=== PATIENT | female | born 1950 | race Caucasian/White ===

== ENCOUNTER 2018-01-16 16:19 | Emergency (ER) | payer OTHER ==
[~2018-01-16] VITALS: Ht 154.9 cm; Wt 47.2 kg
[~2018-01-16 16:19] MED LIST: ACET325 PO; ALBU90OI INH; ASPI81EC PO; ATOR10 PO; AZIT250 PO; DOXY100 PO; PRED20 PO; RALO60 PO
[2018-01-16 16:50] LABS: Calcium, Ionized (POC) 1.15 mmol/L (1.10-1.46); Chloride (POC) 102 mmol/L (98-108); Creatinine (POC) 0.6 mg/dL (0.6-1.0); Glucose (ISTAT POC) 139 mg/dL (70-99); Hemoglobin (POC) 14.3 g/dL (12.0-16.0); Potassium (POC) 3.9 mmol/L (3.5-5.5); Sodium (POC) 142 mmol/L (135-148); Total CO2 (POC) 28 mmol/L (21-32)
[2018-01-16 17:00] LABS: BASOPHILS PERCENT AUTO 1 % (0-2); EOSINOPHILS ABSOLUTE AUTO 0.38 K/mm3 (0.00-0.68); EOSINOPHILS PERCENT AUTO 3 % (0-6); Hematocrit 42.5 % (33.0-51.0); Hemoglobin 13.7 g/dL (11.5-16.0); IMMATURE GRAN ABSOLUTE AUTO 0.02 K/mm3 (0.00-0.10); IMMATURE GRAN PERCENT AUTO 0 % (0-1); LYMPHOCYTES ABSOLUTE AUTO 3.36 K/mm3 (0.84-5.20); LYMPHOCYTES PERCENT AUTO 27 % (21-46); MONOCYTES ABSOLUTE AUTO 0.59 K/mm3 (0.16-1.47); MONOCYTES PERCENT AUTO 5 % (4-13); Mean Corpuscular HGB 28.5 pg (26.0-34.0); Mean Corpuscular HGB Conc 32.2 g/dL (31.5-36.5); Mean Corpuscular Volume 88 fL (80-100); Mean Platelet Volume 10.4 fL (9.1-12.4); NEUTROPHILS ABSOLUTE AUTO 8.07 K/mm3 (1.96-9.15); NEUTROPHILS PERCENT AUTO 65 % (41-73); Platelet Count 239 K/mm3 (150-400); RDW Coefficient Variation 14.6 % (11.7-14.2); RDW Standard Deviation 47.5 fL (35.1-46.3); Red Blood Cell Count 4.81 M/mm3 (3.80-5.20); White Blood Cell Count 12.52 K/mm3 (4.00-11.30)
[2018-01-16 17:14] LABS: Alanine Aminotransfer (ALT/SGP 21 U/L (12-78); Alk Phos 67 U/L (50-136); Anion Gap 7 mmol/L (6-16); Aspartate Aminotrans (AST/SGOT 15 U/L (12-37); Bilirubin, Total 0.3 mg/dL (0.1-1.0); Blood Urea Nitrogen 10 mg/dL (8-24); Bun/Creatinine Ratio 17.2 (12.0-20.0); CO2, Blood 29 mmol/L (21-32); Calcium, Blood 9.1 mg/dL (8.5-10.1); Chloride, Blood 105 mmol/L (98-108); Creatinine, Blood 0.58 mg/dL (0.40-1.00); Globulin, Blood 3.9 g/dL (2.2-4.0); Glomerular Filtration Rate >60 (60-); Glucose, Blood 135 mg/dL (70-99); Potassium, Blood 3.9 mmol/L (3.5-5.5); Sodium, Blood 141 mmol/L (136-145); Total Protein, Blood 7.9 g/dL (6.4-8.2)
[2018-01-16] MEDS ORDERED: Bactrim Ds Tab1 EACH PO (20:08)
== END 2018-01-16 20:25 | disposition home or self-care (01) ==
LOC: ER 16:19
PROVIDERS: Emergency Medicine; Physician Assistant
DX: T81.43XA Infection following a procedure, organ and space surgical site, initial encounter (principal); L03.311 Cellulitis of abdominal wall; L02.211 Cutaneous abscess of abdominal wall; F17.210 Nicotine dependence, cigarettes, uncomplicated; Z79.899 Other long term (current) drug therapy; Z79.82 Long term (current) use of aspirin; Z90.49 Acquired absence of other specified parts of digestive tract
CPT/HCPCS: 10061; 36415; 74177; 80047; 80053; 83605; 85014; 85025; 99284-25; Q9967

== ENCOUNTER 2018-03-28 01:05 | Emergency (ER) | payer OTHER ==
[~2018-03-28] VITALS: Ht 154.9 cm; Wt 45.8 kg
[~2018-03-28 01:05] MED LIST changes: +Bactrim Ds Tab1 EACH PO
[2018-03-28 02:35] LABS: BASOPHILS ABSOLUTE AUTO 0.07 K/mm3 (0.00-0.23); BASOPHILS PERCENT AUTO 1 % (0-2); EOSINOPHILS ABSOLUTE AUTO 0.25 K/mm3 (0.00-0.68); EOSINOPHILS PERCENT AUTO 2 % (0-6); Hematocrit 41.4 % (33.0-51.0); Hemoglobin 13.2 g/dL (11.5-16.0); IMMATURE GRAN ABSOLUTE AUTO 0.02 K/mm3 (0.00-0.10); IMMATURE GRAN PERCENT AUTO 0 % (0-1); LYMPHOCYTES ABSOLUTE AUTO 1.76 K/mm3 (0.84-5.20); LYMPHOCYTES PERCENT AUTO 15 % (21-46); MONOCYTES ABSOLUTE AUTO 0.94 K/mm3 (0.16-1.47); MONOCYTES PERCENT AUTO 8 % (4-13); Mean Corpuscular HGB 28.3 pg (26.0-34.0); Mean Corpuscular HGB Conc 31.9 g/dL (31.5-36.5); Mean Corpuscular Volume 89 fL (80-100); Mean Platelet Volume 11.5 fL (9.1-12.4); NEUTROPHILS PERCENT AUTO 74 % (41-73); Platelet Count 229 K/mm3 (150-400); RDW Coefficient Variation 15.6 % (11.7-14.2); RDW Standard Deviation 50.4 fL (35.1-46.3); Red Blood Cell Count 4.67 M/mm3 (3.80-5.20); White Blood Cell Count 11.54 K/mm3 (4.00-11.30)
[2018-03-28 03:15] LABS: Alanine Aminotransfer (ALT/SGP 279 U/L (12-78); Albumin, Blood 3.6 g/dL (3.4-5.0); Albumin/Globulin Ratio 0.9 (0.8-1.8); Alk Phos 426 U/L (50-136); Anion Gap 10 mmol/L (6-16); Aspartate Aminotrans (AST/SGOT 147 U/L (12-37); Bilirubin, Total 7.6 mg/dL (0.1-1.0); Blood Urea Nitrogen 7 mg/dL (8-24); Bun/Creatinine Ratio 13.3 (12.0-20.0); CO2, Blood 24 mmol/L (21-32); Calcium, Blood 8.5 mg/dL (8.5-10.1); Chloride, Blood 105 mmol/L (98-108); Creatinine, Blood 0.53 mg/dL (0.40-1.00); Glomerular Filtration Rate >60 (60-); Glucose, Blood 149 mg/dL (70-99); Potassium, Blood 3.9 mmol/L (3.5-5.5); Sodium, Blood 139 mmol/L (136-145); Total Protein, Blood 7.6 g/dL (6.4-8.2)
[2018-03-28 04:05] LABS: Source, Urine Clean Catch
[2018-03-28 04:11] LABS: Blood, Urine 1+ (Neg); Glucose Qualitative, Urine Neg (Neg); Ketones, Urine 2+ (Neg); Leukocyte Esterase, Urine 2+ (Neg); Nitrite, Urine Pos (Neg); Protein, Urine 2+ (Neg); Urobilinogen, Urine 3+ (Normal)
[2018-03-28 04:12] LABS: Bilirubin, Urine 3+ (Neg); Color, Urine Amber (P-Yellow)
[2018-03-28 04:16] LABS: Appearance, Urine Hazy (Clear)
[2018-03-28 04:17] LABS: Amorphous Light (0-Heavy); Bacteria Mod /hpf; Hyaline Casts 0-2 /lpf (0-2); Mucus Light (0-Heavy); Red Blood Cells, Urine 0-2 /hpf (0-2); Squamous Epithelial Cells Mod /hpf (Few)
== END 2018-03-28 07:30 | disposition short-term general hospital (02) ==
LOC: ER 01:05
PROVIDERS: Emergency Medicine
DX: K80.50 Calculus of bile duct without cholangitis or cholecystitis without obstruction (principal); K83.8 Other specified diseases of biliary tract; R17 Unspecified jaundice; R79.89 Other specified abnormal findings of blood chemistry; F17.210 Nicotine dependence, cigarettes, uncomplicated; Z79.82 Long term (current) use of aspirin; Z79.899 Other long term (current) drug therapy
CPT/HCPCS: 36415; 74177; 76705; 80053; 81001; 83690; 83735; 84484; 85025; 87086; 93005; 93010; 96374; 99285-25; J3010; Q9967

== ENCOUNTER → 2021-01-15 | Outpatient (CLI) | payer OTHER | END | disposition home or self-care (01) | LOC: LAB SHORT 07:57 → LAB 07:57 | DX: C44.629 Squamous cell carcinoma of skin of left upper limb, including shoulder (principal) | CPT/HCPCS: 88305 ==

== ENCOUNTER 2021-02-06 05:59 | Day surgery (SDC) | payer OTHER ==
[~2021-02-06] VITALS: Ht 154.9 cm; Wt 40.7 kg
[~2021-02-06 05:59] MED LIST changes: +ALPR.5 PO; +CREON DR 12,001 EACH PO
--- NOTE | 2021-02-06 09:28 | NUR ---
PT TO STEP DOWN, READY TO GET DRESSED. Discharge instructions reviewed with patient. Patient verbalizes understanding. Copy given to patient to take home. PT DENIES PAIN AT THIS TIME. TOLERATING COFFEE WELL. Discharged via wheelchair to private car for ride home. STERI STRIP TO NECK DRY AND INTACT WITH DRIED BLOOD AROUND IT. NOTIFIED PT THAT THIS IS NORMAL AND BLOOD IS DRIED. GAUZE DRESSING WITH CLEAR ADHESIVE TO RIGHT CHEST, MIN SWELLING AROUND SITE. INSTRUCTED PT TO USE ICE PACK, PT STATES SHE HAS ONE AT HOME.
== END 2021-02-06 09:15 | disposition home or self-care (01) ==
LOC: ORSCMMR 05:59 → ORD 07:30 → ORSCMMR 09:15
PROVIDERS: Surgery
PROC: 05HM33Z Insertion of Infusion Device into Right Internal Jugular Vein, Percutaneous Approach (ICD-10-PCS; principal; 2021-02-06 07:30)
PROC: B543ZZA Ultrasonography of Right Jugular Veins, Guidance (ICD-10-PCS; principal; 2021-02-06 07:30)
DX: C25.0 Malignant neoplasm of head of pancreas (principal); F17.210 Nicotine dependence, cigarettes, uncomplicated; J44.9 Chronic obstructive pulmonary disease, unspecified; Z87.891 Personal history of nicotine dependence
CPT/HCPCS: 77001; C1788; J0690; J1100; J1642; J1885; J2370; J2405; J2704; J3010; J7120

== ENCOUNTER → 2021-06-27 | Outpatient (CLI) | payer OTHER ==
[2021-06-27 12:18] LABS: Source, Urine Clean Catch
[2021-06-27 19:51] LABS: Appearance, Urine Hazy (Clear); Bilirubin, Urine Neg (Neg); Blood, Urine Neg (Neg); Color, Urine Yellow (P-Yellow); Glucose Qualitative, Urine Neg (Neg); Ketones, Urine Neg (Neg); Leukocyte Esterase, Urine Neg (Neg); Nitrite, Urine Neg (Neg); Protein, Urine 1+ (Neg); Urobilinogen, Urine NORM (Normal)
[2021-06-27 20:23] LABS: Amorphous Light (0-Heavy); Mucus Mod (0-Heavy)
[2021-06-27 20:24] LABS: Bacteria Mod /hpf; Calcium Oxalate Crystals Mod /hpf; Red Blood Cells, Urine 0-2 /hpf (0-2); Squamous Epithelial Cells Mod /hpf (Few); White Blood Cells, Urine 0-2 /hpf (0-5)
== END | disposition home or self-care (01) ==
LOC: LAB SHORT 12:17
PROVIDERS: Internal Medicine Hematology & Oncology
DX: C25.9 Malignant neoplasm of pancreas, unspecified (principal); R39.15 Urgency of urination
CPT/HCPCS: 81001; 87086

== ENCOUNTER 2023-03-12 21:06 | Observation (INO) | payer OTHER ==
[~2023-03-12] VITALS: Ht 154.9 cm; Wt 34.5 kg
[2023-03-12] MEDS ORDERED: OMEP20ER (21:21)
[2023-03-12 22:06] LABS: BASOPHILS ABSOLUTE AUTO 0.01 K/mm3 (0.00-0.23); BASOPHILS PERCENT AUTO 0 % (0-2); EOSINOPHILS ABSOLUTE AUTO 0.01 K/mm3 (0.00-0.68); EOSINOPHILS PERCENT AUTO 0 % (0-6); IMMATURE GRAN ABSOLUTE AUTO 0.04 K/mm3 (0.00-0.10); IMMATURE GRAN PERCENT AUTO 1 % (0-1); LYMPHOCYTES ABSOLUTE AUTO 0.55 K/mm3 (0.84-5.20); LYMPHOCYTES PERCENT AUTO 7 % (21-46); MONOCYTES ABSOLUTE AUTO 0.56 K/mm3 (0.16-1.47); MONOCYTES PERCENT AUTO 7 % (4-13); Mean Corpuscular HGB 29.1 pg (26.0-34.0); Mean Corpuscular HGB Conc 32.3 g/dL (31.5-36.5); Mean Corpuscular Volume 90 fL (80-100); Mean Platelet Volume 10.1 fL (9.1-12.4); NEUTROPHILS ABSOLUTE AUTO 6.86 K/mm3 (1.96-9.15); NEUTROPHILS PERCENT AUTO 86 % (41-73); Platelet Count 123 K/mm3 (150-400); RDW Coefficient Variation 17.2 % (11.7-14.2); Red Blood Cell Count 3.44 M/mm3 (3.80-5.20); White Blood Cell Count 8.03 K/mm3 (4.00-11.30)
[2023-03-12 23:16] LABS: Albumin/Globulin Ratio 0.9 (0.8-1.8); Bilirubin, Total 0.3 mg/dL (0.1-1.0); Bun/Creatinine Ratio 40.7 (12.0-20.0); Calcium, Blood 8.5 mg/dL (8.5-10.1); Creatinine, Blood 0.44 mg/dL (0.40-1.00); Globulin, Blood 3.2 g/dL (2.2-4.0); Potassium, Blood 4.4 mmol/L (3.5-5.5); Total Protein, Blood 6.2 g/dL (6.4-8.2)
[2023-03-13 00:51] LABS: Influenza A, PCR NEGATIVE (NEGATIVE); Influenza B, PCR NEGATIVE (NEGATIVE); Resp Syncytial Virus, PCR NEGATIVE (NEGATIVE); SARS-Cov-2 (COVID-19) PCR, MMC NEGATIVE (NEGATIVE)
[2023-03-13] MEDS ORDERED: OMEP20ER PO (03:36)
[2023-03-13 03:37] VITALS: BP 179/88
[2023-03-13] MEDS ORDERED: POTCHL20ER PO (03:37)
[2023-03-13 04:53] LABS: BASOPHILS PERCENT AUTO 0 % (0-2); EOSINOPHILS ABSOLUTE AUTO 0.02 K/mm3 (0.00-0.68); EOSINOPHILS PERCENT AUTO 0 % (0-6); Hematocrit 29.4 % (33.0-51.0); Hemoglobin 9.3 g/dL (11.5-16.0); IMMATURE GRAN ABSOLUTE AUTO 0.02 K/mm3 (0.00-0.10); IMMATURE GRAN PERCENT AUTO 0 % (0-1); LYMPHOCYTES ABSOLUTE AUTO 1.03 K/mm3 (0.84-5.20); LYMPHOCYTES PERCENT AUTO 20 % (21-46); MONOCYTES ABSOLUTE AUTO 0.42 K/mm3 (0.16-1.47); MONOCYTES PERCENT AUTO 8 % (4-13); Mean Corpuscular HGB 28.5 pg (26.0-34.0); Mean Corpuscular HGB Conc 31.6 g/dL (31.5-36.5); Mean Corpuscular Volume 90 fL (80-100); Mean Platelet Volume 10.3 fL (9.1-12.4); NEUTROPHILS ABSOLUTE AUTO 3.66 K/mm3 (1.96-9.15); NEUTROPHILS PERCENT AUTO 71 % (41-73); Platelet Count 113 K/mm3 (150-400); RDW Coefficient Variation 17.3 % (11.7-14.2); RDW Standard Deviation 56.6 fL (35.1-46.3); Red Blood Cell Count 3.26 M/mm3 (3.80-5.20); White Blood Cell Count 5.15 K/mm3 (4.00-11.30)
[2023-03-13 05:49] LABS: Albumin, Blood 2.9 g/dL (3.4-5.0); Bilirubin, Total 0.2 mg/dL (0.1-1.0); Bun/Creatinine Ratio 44.9 (12.0-20.0); Calcium, Blood 8.2 mg/dL (8.5-10.1); Creatinine, Blood 0.4 mg/dL (0.40-1.00); Globulin, Blood 2.9 g/dL (2.2-4.0); Potassium, Blood 4.5 mmol/L (3.5-5.5); Total Protein, Blood 5.8 g/dL (6.4-8.2)
--- NOTE | 2023-03-13 06:57 | NUR ---
PATIENT CAME IN FROM ER PER STRETCHER, TRANSFERRED TO BED COMFORTABLY AT 0330 AM. WITH ONGOING CHEMOTHERAPY THRU MEDIPORT. WITH PIV LEFT UPPER ARM PATENT AND INTACT AND FLUSHING WELL. GIVEN IV LASIX. NO COMPLAINT OF NAUSEA, VOMITING NOR CHEST PAIN, ONLY DISCOMFORT THRU POSITIONING. ON RA AND TELE. NEEDS ATTENDED. CALL LIGHT WITHIN PATIENT'S REACH. WILL CONTINUE TO MONITOR.
[2023-03-13 07:18] VITALS: BP 148/85
[2023-03-13] MEDS ORDERED: ALPR.5 PO (10:38)
[2023-03-13] MEDS ORDERED: HYDROCODONE-AC1 EA10 PO (10:40)
[2023-03-13 15:37] VITALS: BP 166/80
[2023-03-13] MEDS ORDERED: FURO20 PO (16:28)
--- NOTE | 2023-03-13 17:17 | NUR ---
DISCHARGE INSTRUCTIONS COMPLETED AND DISCUSSED WITH PT EXPRESSING UNDERSTANDING. SCRIPTS FAXED TO [facility]. [facility] VIA W/C. PT HAD SPOKE WITH [facility] THIS MORNING AND A NURSE FROM THERE CAME THIS AFTERNOON AND REMOVED HER CHEMO MEDICATION AND DCD HER MEDIPORT ACCESS.
== END 2023-03-13 17:03 | disposition home or self-care (01) ==
LOC: ER 21:06 → MEDS 21:07
PROVIDERS: Emergency Medicine; ADMIT Internal Medicine
DX: R07.89 Other chest pain (principal); R79.89 Other specified abnormal findings of blood chemistry; I50.20 Unspecified systolic (congestive) heart failure; K21.9 Gastro-esophageal reflux disease without esophagitis; F17.210 Nicotine dependence, cigarettes, uncomplicated; Z79.899 Other long term (current) drug therapy; Z20.822 Contact with and (suspected) exposure to COVID-19
CPT/HCPCS: 0241U; 36415; 71046; 71260; 80053; 83605; 83880; 84484; 85025; 85379; 93005; 93010; 93306; 99285-25; A9270; G0378; J1940; Q9967

== ENCOUNTER 2023-05-07 02:01 | Inpatient (IN) | payer OTHER ==
[2023-05-07] VITALS (12 sets, daily range): BP systolic 146–171; BP diastolic 76–125
[~2023-05-07] VITALS: Ht 154.9 cm; Wt 38.6 kg
[~2023-05-07 02:01] MED LIST changes: +FURO20 PO; +HYDROCODONE-AC1 EA10 PO; +OMEP20ER; +OMEP20ER PO; +POTCHL20ER PO
[2023-05-07 02:37] LABS: BASOPHILS ABSOLUTE AUTO 0.01 K/mm3 (0.00-0.23); BASOPHILS PERCENT AUTO 0 % (0-2); EOSINOPHILS ABSOLUTE AUTO 0.01 K/mm3 (0.00-0.68); EOSINOPHILS PERCENT AUTO 0 % (0-6); Hematocrit 39.6 % (33.0-51.0); IMMATURE GRAN ABSOLUTE AUTO 0.05 K/mm3 (0.00-0.10); IMMATURE GRAN PERCENT AUTO 1 % (0-1); LYMPHOCYTES ABSOLUTE AUTO 1.81 K/mm3 (0.84-5.20); LYMPHOCYTES PERCENT AUTO 24 % (21-46); MONOCYTES ABSOLUTE AUTO 0.59 K/mm3 (0.16-1.47); MONOCYTES PERCENT AUTO 8 % (4-13); Mean Corpuscular HGB 28.3 pg (26.0-34.0); Mean Corpuscular HGB Conc 30.3 g/dL (31.5-36.5); Mean Corpuscular Volume 93 fL (80-100); Mean Platelet Volume 10.1 fL (9.1-12.4); NEUTROPHILS ABSOLUTE AUTO 5.09 K/mm3 (1.96-9.15); NEUTROPHILS PERCENT AUTO 67 % (41-73); Platelet Count 169 K/mm3 (150-400); RDW Coefficient Variation 17.2 % (11.7-14.2); RDW Standard Deviation 57.6 fL (35.1-46.3); Red Blood Cell Count 4.24 M/mm3 (3.80-5.20); White Blood Cell Count 7.56 K/mm3 (4.00-11.30)
[2023-05-07] MEDS ORDERED: CefTRIAXone Sodium 1,000 MG in NS 50 ML IV ONE (02:50)
[2023-05-07] MEDS ORDERED: Ipratropium/Albuterol SulF 2.5-0.5MG/3 ML Amp INH ONE (02:50)
[2023-05-07] MEDS ORDERED: NS 1,000 ML IV SCH ×2 (02:55→03:50)
[2023-05-07 03:05] LABS: Albumin, Blood 3.2 g/dL (3.4-5.0); Albumin/Globulin Ratio 0.8 (0.8-1.8); Bilirubin, Total 0.5 mg/dL (0.1-1.0); Bun/Creatinine Ratio 33.5 (12.0-20.0); Calcium, Blood 8.3 mg/dL (8.5-10.1); Creatinine, Blood 0.39 mg/dL (0.40-1.00); Globulin, Blood 3.9 g/dL (2.2-4.0); Magnesium, Blood 2.3 mg/dL (1.6-2.4); Phosphorus, Blood 3.6 mg/dL (2.5-4.9); Potassium, Blood 4.3 mmol/L (3.5-5.5); Thyroid Stimulating Hormone 10.7 uIU/mL (0.360-4.800); Total Protein, Blood 7.1 g/dL (6.4-8.2)
[2023-05-07 03:42] LABS: D-Dimer, Quantitative 3.99 mg/L FEU (0.00-0.52)
[2023-05-07] MEDS ORDERED: FLU VACC QS2023-24(6MOS UP)/PF 60 MCG/0.5 ML SYRINGE IM ONE (03:50)
[2023-05-07] MEDS ORDERED: Acetaminophen 325 MG TABLET PO PRN (03:50)
[2023-05-07] MEDS ORDERED: Magnesium Hydroxide Conc 10 ML UDC PO PRN (03:50)
[2023-05-07 04:22] LABS: Base Excess Venous 1.5 mmol/L; Bicarbonate Venous 25.1 mmol/L (24.0-30.0); PCO2 Venous 53.5 mmHg (38-42); pH Blood Venous 7.32 (7.34-7.37)
[2023-05-07 04:38] LABS: Source, Urine Clean Catch
[2023-05-07] MEDS ORDERED: Ipratropium/Albuterol SulF 2.5-0.5MG/3 ML Amp INH SCH (04:50)
[2023-05-07 04:58] LABS: Appearance, Urine Clear (Clear); Bilirubin, Urine Neg (Neg); Blood, Urine Neg (Neg); Color, Urine Yellow (P-Yellow); Glucose Qualitative, Urine Neg (Neg); Ketones, Urine Neg (Neg); Leukocyte Esterase, Urine Neg (Neg); Nitrite, Urine Neg (Neg); Protein, Urine 2+ (Neg); Urobilinogen, Urine NORM (Normal)
[2023-05-07 05:16] LABS: Bacteria Few /hpf; Red Blood Cells, Urine 0-2 /hpf (0-2); Squamous Epithelial Cells Few /hpf (Few); White Blood Cells, Urine 0-2 /hpf (0-5)
[2023-05-07] MEDS ORDERED: MethylPREDNISolone Sod Succ 40 MG VIAL IV SCH (06:00)
[2023-05-07] MEDS ORDERED: Furosemide 20 MG Tab PO PRN (08:20)
[2023-05-07] MEDS ORDERED: Amylase/Lipase/Protease DR Cap 12,000 PO SCH (08:30)
[2023-05-07] MEDS ORDERED: Omeprazole 20 MG CapCR PO SCH (08:51)
[2023-05-07] MEDS ORDERED: Potassium Chloride 20 MEQ TabCR PO SCH (09:00)
[2023-05-07] MEDS ORDERED: Lactobacil 2-S.Thermo-Bifido 1 1 Cap PO SCH (09:00)
[2023-05-07] MEDS ORDERED: Enoxaparin 30 MG/0.3 ML SYR SC SCH (09:00)
[2023-05-07] MEDS ORDERED: Enoxaparin 40 MG/0.4 ML SYR SC SCH (09:00)
[2023-05-07] MEDS ORDERED: Azithromycin 250 MG Tab PO SCH (09:00)
--- NOTE | 2023-05-07 18:32 | NUR ---
SHIFT SUMMARY NO ACUTE CHANGES THIS SHIFT. PT HAS REMAINED AWAKE, ALERT, AND ORIENTED. PT HAS REMAINED ON ROOM AIR THROUGHOUT THE DAY. VITAL SIGNS STABLE. PT HAS DENIED SOB. PT HOME CHEMO COMPLETED AT 1400 TODAY, AND MEDIPORT HEPARIN LOCKED AND DEACCESSED BY CHEMO RN. NS INFUSING AT 75 ML/HR THROUGH PIV. PT TAKING IN PO INTAKE WITHOUT DIFFICULTY. PT UP TO BSC MULTIPLE TIMES THIS SHIFT WITH SBA. ATTENDS REMAIN IN PLACE. PT SON AT BEDSIDE FOR SHORT TIME THIS MORNING. WILL CONTINUE TO MONITOR AND REPORT OFF TO ONCOMING RN.
--- NOTE | 2023-05-07 19:45 | NUR ---
PATIENT ARRIVED TO UNIT AT 1855, WALKED TO BED FROM HALLWAY STANDBY ASSIST. AWARE OF LIMITATIONS.
[2023-05-08 04:31] VITALS: BP 166/90
[2023-05-08 05:42] LABS: BASOPHILS PERCENT AUTO 0 % (0-2); EOSINOPHILS PERCENT AUTO 0 % (0-6); Hematocrit 30.6 % (33.0-51.0); Hemoglobin 9.6 g/dL (11.5-16.0); IMMATURE GRAN ABSOLUTE AUTO 0.02 K/mm3 (0.00-0.10); IMMATURE GRAN PERCENT AUTO 0 % (0-1); LYMPHOCYTES ABSOLUTE AUTO 0.45 K/mm3 (0.84-5.20); LYMPHOCYTES PERCENT AUTO 9 % (21-46); MONOCYTES ABSOLUTE AUTO 0.18 K/mm3 (0.16-1.47); MONOCYTES PERCENT AUTO 4 % (4-13); Mean Corpuscular HGB 28.8 pg (26.0-34.0); Mean Corpuscular HGB Conc 31.4 g/dL (31.5-36.5); Mean Corpuscular Volume 92 fL (80-100); Mean Platelet Volume 10.8 fL (9.1-12.4); NEUTROPHILS ABSOLUTE AUTO 4.51 K/mm3 (1.96-9.15); NEUTROPHILS PERCENT AUTO 87 % (41-73); Platelet Count 126 K/mm3 (150-400); RDW Standard Deviation 57.1 fL (35.1-46.3); Red Blood Cell Count 3.33 M/mm3 (3.80-5.20); White Blood Cell Count 5.16 K/mm3 (4.00-11.30)
[2023-05-08] MEDS ORDERED: Omeprazole 20 MG CapCR PO SCH ×2 (06:00→08:00)
[2023-05-08] MEDS ORDERED: Levothyroxine Sodium 0.05 MG Tab PO SCH (06:00)
[2023-05-08 06:10] LABS: Bun/Creatinine Ratio 42.3 (12.0-20.0); Calcium, Blood 8.5 mg/dL (8.5-10.1); Creatinine, Blood 0.38 mg/dL (0.40-1.00)
[2023-05-08 07:45] VITALS: BP 173/93
--- NOTE | 2023-05-08 07:50 | NUR ---
MD CALL DR HOOKS NOTIFIED OF RAISED BLOOD PRESSURE. HE WILL REVIEW
[2023-05-08] MEDS ORDERED: CefTRIAXone Sodium 1,000 MG in NS 50 ML IV SCH (08:00)
[2023-05-08] MEDS ORDERED: AZIT500 PO ×2 (11:11)
[2023-05-08] MEDS ORDERED: AMOCLA875 PO ×2 (11:11)
[2023-05-08] MEDS ORDERED: EUTHYROX50 MCG PO ×2 (11:12)
[2023-05-08] MEDS ORDERED: IPRAT-ALBUT 0.5-3 ML INH ×2 (11:12)
[2023-05-08] MEDS ORDERED: Prednisone10 MG PO ×2 (11:13)
--- NOTE | 2023-05-08 13:32 | NUR ---
DISCHARGE NOTE MS VAUGHN IS DISCHARGING HOME TODAY. SHE VERBALISED UNDERSTANDING OF WRITTEN AND VERBAL DISCHARGE INSTRUCTIONS. DENIES PAIN. SHE IS WELL INFORMED ON HER MEDICATIONS AND PLAN OF CARE. PIV REMOVED TELEMETRY REMOVED. RECEIVED FOOD FOR DISCHARGE AND HAS BEEN GIVEN INFORMATION FROM EXTRUSION OPERATOR ON FOOD PANTRY. LEFT VIA W/C AT [id number].
[2023-05-09] MEDS ORDERED: ALBU90OI INH (16:16)
== END 2023-05-08 13:38 | disposition home or self-care (01) | DRG 189 ==
LOC: ER 02:01 → ICUE 03:45 → MEDS 18:49 → ENPENDDIS 05-08 10:19 → MEDS 05-08 13:38
PROVIDERS: Emergency Medicine; Family Medicine; ADMIT Internal Medicine
PROC: 5A09357 Assistance with Respiratory Ventilation, Less than 24 Consecutive Hours, Continuous Positive Airway Pressure (ICD-10-PCS; principal; 2023-05-07)
DX: J96.21 Acute and chronic respiratory failure with hypoxia (principal); C25.9 Malignant neoplasm of pancreas, unspecified; C78.00 Secondary malignant neoplasm of unspecified lung; E46 Unspecified protein-calorie malnutrition; I50.32 Chronic diastolic (congestive) heart failure; N39.0 Urinary tract infection, site not specified; Z68.1 Body mass index [BMI] 19.9 or less, adult; F17.210 Nicotine dependence, cigarettes, uncomplicated; J43.9 Emphysema, unspecified; R74.01 Elevation of levels of liver transaminase levels; Z85.3 Personal history of malignant neoplasm of breast; Z90.11 Acquired absence of right breast and nipple; Z98.890 Other specified postprocedural states; Z98.891 History of uterine scar from previous surgery; Z87.01 Personal history of pneumonia (recurrent); Z79.899 Other long term (current) drug therapy
CPT/HCPCS: 36415; 51701; 71045; 71260; 74177; 80048; 80053; 81001; 82803; 83605; 83690; 83735; 83880; 84100; 84145; 84443; 84484; 85025; 85379; 85730; 93005; 93010; 94640; 94664; 94762; 96374-59; 99285-25; A9270; J0696; J1642; J1650; J2920; J7030; Q9967

== ENCOUNTER 2023-05-09 11:04 | Emergency (ER) | payer OTHER ==
[~2023-05-09] VITALS: Ht 154.9 cm; Wt 33.6 kg
[~2023-05-09 11:04] MED LIST changes: +AMOCLA875 PO; +AZIT500 PO; +EUTHYROX50 MCG PO; +IPRAT-ALBUT 0.5-3 ML INH; +Prednisone10 MG PO
[2023-05-09 11:29] LABS: BASOPHILS ABSOLUTE AUTO 0.01 K/mm3 (0.00-0.23); BASOPHILS PERCENT AUTO 0 % (0-2); EOSINOPHILS PERCENT AUTO 0 % (0-6); Hematocrit 34.3 % (33.0-51.0); Hemoglobin 10.8 g/dL (11.5-16.0); IMMATURE GRAN ABSOLUTE AUTO 0.07 K/mm3 (0.00-0.10); IMMATURE GRAN PERCENT AUTO 1 % (0-1); LYMPHOCYTES ABSOLUTE AUTO 0.68 K/mm3 (0.84-5.20); LYMPHOCYTES PERCENT AUTO 9 % (21-46); MONOCYTES ABSOLUTE AUTO 0.14 K/mm3 (0.16-1.47); MONOCYTES PERCENT AUTO 2 % (4-13); Mean Corpuscular HGB 28.8 pg (26.0-34.0); Mean Corpuscular HGB Conc 31.5 g/dL (31.5-36.5); Mean Corpuscular Volume 92 fL (80-100); Mean Platelet Volume 10.3 fL (9.1-12.4); NEUTROPHILS ABSOLUTE AUTO 6.98 K/mm3 (1.96-9.15); NEUTROPHILS PERCENT AUTO 89 % (41-73); Platelet Count 164 K/mm3 (150-400); RDW Coefficient Variation 17.1 % (11.7-14.2); RDW Standard Deviation 56.5 fL (35.1-46.3); Red Blood Cell Count 3.75 M/mm3 (3.80-5.20); White Blood Cell Count 7.88 K/mm3 (4.00-11.30)
[2023-05-09 11:57] LABS: Albumin, Blood 3.3 g/dL (3.4-5.0); Albumin/Globulin Ratio 0.9 (0.8-1.8); Bilirubin, Total 0.6 mg/dL (0.1-1.0); Bun/Creatinine Ratio 40.7 (12.0-20.0); Calcium, Blood 8.7 mg/dL (8.5-10.1); Creatinine, Blood 0.39 mg/dL (0.40-1.00); Globulin, Blood 3.7 g/dL (2.2-4.0); Potassium, Blood 4.7 mmol/L (3.5-5.5)
[2023-05-09] MEDS ORDERED: Furosemide 10 MG / ML 2ML Vial IV ONE (14:45)
[2023-05-09] MEDS ORDERED: Ipratropium/Albuterol SulF 2.5-0.5MG/3 ML Amp INH ONE (14:45)
[2023-05-09 15:23] LABS: Source, Urine Straight Cath
[2023-05-09 15:51] LABS: Bilirubin, Urine Neg (Neg); Blood, Urine Neg (Neg); Glucose Qualitative, Urine Neg (Neg); Ketones, Urine Neg (Neg); Leukocyte Esterase, Urine 1+ (Neg); Nitrite, Urine Neg (Neg); Protein, Urine Neg (Neg); Specific Gravity, Urine 1.005 (1.003-1.022); Urobilinogen, Urine NORM (Normal)
[2023-05-09 16:00] VITALS: BP 174/88
[2023-05-09 16:00] LABS: Appearance, Urine Clear (Clear); Color, Urine Pale Yellow (P-Yellow)
[2023-05-09 16:01] LABS: Red Blood Cells, Urine 0-2 /hpf (0-2)
[2023-05-09 16:02] LABS: Bacteria Mod /hpf; Squamous Epithelial Cells Few /hpf (Few)
[2023-05-09] MEDS ORDERED: ALBU90OI INH (16:16)
== END 2023-05-09 16:28 | disposition home or self-care (01) ==
LOC: ER 11:04
PROVIDERS: Physician Assistant
DX: J44.1 Chronic obstructive pulmonary disease with (acute) exacerbation (principal); I50.9 Heart failure, unspecified; Z85.3 Personal history of malignant neoplasm of breast; Z79.899 Other long term (current) drug therapy; Z79.52 Long term (current) use of systemic steroids; Z87.891 Personal history of nicotine dependence
CPT/HCPCS: 71045; 80053; 81001; 83880; 85025; 94640; 94664; J1940